=== PATIENT | male | born 1990 | race Hispanic/Latino ===

== ENCOUNTER 2024-03-17 02:57 | Emergency (ER) | payer SELFPAY ==
[~2024-03-17] VITALS: Ht 168.9 cm; Wt 85.1 kg
[2024-03-17] MEDS: FLUORESCEIN OPHTH 1MG STRIP OU ONE (06:39)
[2024-03-17] MEDS: PROPARACAINE 0.5% OPHTH SOL 15ML OU ONE (06:39)
[2024-03-17] MEDS ORDERED: CIPR0.3S37 OP (07:17)
[2024-03-17 07:25] VITALS: BP 111/70; TEMP 98.7; O2SAT 99
== END 2024-03-17 07:28 | disposition home or self-care (01) ==
LOC: M ED 02:57
DX: S05.01XA Injury of conjunctiva and corneal abrasion without foreign body, right eye, initial encounter (principal); X58.XXXA Exposure to other specified factors, initial encounter; Y92.9 Unspecified place or not applicable; Y93.9 Activity, unspecified; Y99.9 Unspecified external cause status